=== PATIENT | female | born 1980 | race Caucasian/White ===

== ENCOUNTER 2021-07-30 21:48 | Emergency (ER) | payer OTHER, MEDICAID ==
[2021-07-30] MEDS ORDERED: EPINEPHrine 1 MG/1 ML Amp IM ONE (21:59)
[2021-07-30] MEDS ORDERED: Famotidine 20 MG/2 ML SDV IVPUSH ONE (21:59)
[2021-07-30] MEDS ORDERED: methylPREDNISolone Sodium Succinate 125 MG/2 ML SDV IV ONE (21:59)
[2021-07-30] MEDS ORDERED: Sodium Chloride 0.9% 10 ML Syringe FLUSH PRN (22:00)
[2021-07-30] MEDS ORDERED: diphenhydrAMINE 50 MG/ML SDV IVPUSH ONE (22:45)
[2021-07-30 23:59] VITALS: BP 105/58; PULSE 94
== END 2021-07-30 23:50 | disposition home or self-care (01) ==
LOC: VM.ED 21:48
DX: T78.40XA Allergy, unspecified, initial encounter (principal); E66.9 Obesity, unspecified; Z68.30 Body mass index [BMI] 30.0-30.9, adult; Z88.8 Allergy status to other drugs, medicaments and biological substances; Z79.899 Other long term (current) drug therapy
CPT/HCPCS: 96365; 96372; 96375; 99283; 99283-25; J0171; J1200; J2930; J3490

== ENCOUNTER 2021-10-04 09:09 | Day surgery (SDC) | payer OTHER, MEDICAID ==
[~2021-10-04 09:09] MED LIST: Lactated Ringers 1,000 ML IV SCH
[2021-10-04] MEDS ORDERED: Propofol 200 MG/20 ML SDV ONE ×4 (10:20→11:47)
[2021-10-04] MEDS ORDERED: fentaNYL 100 MCG/2 ML SDV ONE (10:20)
[2021-10-04 12:47] VITALS: BP 120/72; PULSE 80
== END 2021-10-04 13:27 | disposition home or self-care (01) ==
LOC: VM.SDS 09:09
PROVIDERS: ATTEND Family Medicine
DX: K52.9 Noninfective gastroenteritis and colitis, unspecified (principal); K63.89 Other specified diseases of intestine; K64.9 Unspecified hemorrhoids; E66.9 Obesity, unspecified; F32.A Depression, unspecified; R73.01 Impaired fasting glucose; Z87.891 Personal history of nicotine dependence; Z90.49 Acquired absence of other specified parts of digestive tract; Z98.890 Other specified postprocedural states; Z79.899 Other long term (current) drug therapy; Z88.8 Allergy status to other drugs, medicaments and biological substances
CPT/HCPCS: 00812; 81025; J2704; J3010; J7120

== ENCOUNTER → 2021-11-29 | Day surgery (SDC) | payer OTHER, MEDICAID ==
[~2021-11-29] MED LIST changes: +Propofol 200 MG/20 ML SDV ONE; +fentaNYL 100 MCG/2 ML SDV ONE
== END ==
LOC: VM.SDS 06:00
PROVIDERS: ATTEND Family Medicine
DX: D64.9 Anemia, unspecified (principal); K52.9 Noninfective gastroenteritis and colitis, unspecified; E66.9 Obesity, unspecified; F32.A Depression, unspecified; R73.01 Impaired fasting glucose; Z68.35 Body mass index [BMI] 35.0-35.9, adult; Z87.891 Personal history of nicotine dependence; Z98.84 Bariatric surgery status; Z79.899 Other long term (current) drug therapy; Z88.8 Allergy status to other drugs, medicaments and biological substances; Z98.890 Other specified postprocedural states; Z90.49 Acquired absence of other specified parts of digestive tract
CPT/HCPCS: 00731; 81025; J2704; J3010; J7120